=== PATIENT | female | born 1985 | race Native Hawaiian/Other Pacific Islander ===

== ENCOUNTER 2022-01-28 13:25 | Outpatient (CLI) | payer BC ==
[2022-01-28 14:16] LABS: PLATELET COUNT 388 K/uL (152-353)
[2022-01-28 14:33] LABS: POTASSIUM 3.7 mmol/L (3.6-5.2)
[2022-01-28 14:40] LABS: PARTIAL THROMBOPLASTIN TIME 27.9 SECONDS (24.5-33.6)
== END 2022-01-28 19:00 | disposition home or self-care (01) ==
LOC: LABW 13:25
DX: E66.01 Morbid (severe) obesity due to excess calories (principal)
CPT/HCPCS: 36415; 80053; 81002; 83036; 84443; 85027; 85610; 85730; 93005